=== PATIENT | female | born 1975 | race Caucasian/White ===

== ENCOUNTER 2017-04-21 00:40 | Emergency (ER) | payer OTHER ==
[2017-04-21] MEDS ORDERED: NORMAL SALINE 500 ML IV.SOLN IV SCH (01:30)
[2017-04-21] MEDS ORDERED: 0.9 % SODIUM CHLORIDE 1,000 ML IV ONE (01:44)
[2017-04-21] MEDS: fentaNYL CITRATE/PF 100 MCG/ 2ML AMP IVP ONE (02:30)
[2017-04-21] MEDS: ONDANSETRON HCL/PF 4 MG/ 2ML VIAL IVP ONE (02:30)
[2017-04-21] MEDS ORDERED: KETOROLAC TROMETHAMINE 30 MG/1ML VIAL ONE (02:35)
[2017-04-21] MEDS: KETOROLAC TROMETHAMINE 30 MG/1ML VIAL IM ONE (03:00)
[2017-04-21] MEDS: Lidocaine 2%Visc 15ml 20 MG/ML UDC PO ONE (03:20)
[2017-04-21] MEDS ORDERED: MAG HYDROX/AL HYDROX/SIMETH 30 ML UDC PO ONE (03:22)
[2017-04-21] MEDS ORDERED: Lidocaine 2%Visc 15ml 20 MG/ML UDC ONE (03:22)
[2017-04-21] MEDS: MAG HYDROX/AL HYDROX/SIMETH 30 ML, Lidocaine 2%Visc 15ml 20 MG, PHENobarb/HYOSCY/ATROPI... PO ONE ×3 (03:28)
[2017-04-21 03:36] VITALS: BP 131/72
--- NOTE | 2017-04-21 04:22 | ED Physician Documentation ---
Abdominal Pain - HISTORIAN Historian: patient - HPI Chief Complaint: Abdominal Pain Additonal Information: 42 yo F who present with acute abdominal pain that started shortly before presentation. She reports nausea with non bloody emesis associated with non bloody diarrhea. Pt report history of kidney stone. No fever or chills reported. No dysuria or hematuria reported. Onset: hours Context: other (none) Quality: pain, burning Associated Symptoms: nausea Relieved by: nothing - ROS CONST: no problems CVS/RESP: none EYES/ENT: none MS/SKIN/LYMPH: none NEURO/PSYCH: none - SOCIAL HX Smoking History: non-smoker - FAMILY HX Family History: no significant history - PAST HX Past History: GERD Home Medications: Ambulatory Orders Medication Instructions Recorded Dextroamphetamine/Amphetamine 1 tab PO BID 04/21/17 [Adderall 10 mg Tablet] LORazepam [Ativan] 0.5 mg PO QDAY 04/21/17 Venlafaxine HCl [Effexor Xr] 150 mg PO QDAY 04/21/17 Allergies/Adverse Reactions: Allergies Allergy/AdvReac Type Severity Reaction Status Date / Time No Known Allergies Allergy Verified 04/21/17 01:37 - VITAL SIGNS Vital Signs: Vital Signs Temp Pulse Resp BP Pulse Ox 98.2 F 81 16 131/72 98 04/21/17 03:25 04/21/17 03:25 04/21/17 03:25 04/21/17 03:25 04/21/17 03:25 - REVIEWED ASSESSMENTS Nursing Assessment Reviewed: Yes Vitals Reviewed: Yes Progress - Progress Progress: diffuse abdominal pain with nausea and emesis with diarrhea--could be gastroenteritis-- will check routine cmb and cbc and UA to rule any correctable cause -- also with CT abd/pel -- starting ivf ns bolus-- CT abd/pel -- noted negative --symptoms is likely gastroenteritis -- - EKG/XRAY/CT CT: CT abd/pel --no acute intraabdominal process noted ED Results Lab/Radiology - Orders Orders: ED Orders Category Date Time Status Place IV Lock 1T Care 04/21/17 01:[address] ABDOMEN PELVIS S [CT ABD & PELVIS W/O CON] Stat Exams 04/21/17 Taken CBC/PLATELET/DIFF Routine Lab 04/21/17 01:37 Stop Req CMP Routine Lab 04/21/17 01:46 Stop Req ETHANOL MEDICAL USE ONLY Routine Lab 04/21/17 01:46 Stop Req 0.9 % Sodium Chloride [Normal Saline] Med 04/21/17 01:30 Discontinued 1,000 ml IV DIRECTED 0.9 % Sodium Chloride [Normal Saline] 1,000 ml Med 04/21/17 01:44 Discontinued IV .STK-MED Ketorolac Tromethamine [Toradol] Med 04/21/17 02:35 Discontinued 30 mg .ROUTE .STK-MED ONE Ketorolac Tromethamine [Toradol] Med 04/21/17 03:00 Discontinued 30 mg IM NOW ONE Lidocaine 2%Visc 15ml [Xylocaine] Med 04/21/17 03:15 Discontinued 15 mg PO NOW ONE Lidocaine 2%Visc 15ml [Xylocaine] Med 04/21/17 03:22 Discontinued 300 mg .ROUTE .STK-MED ONE Mag Hydrox/Al Hydrox/Simeth [Mylanta] Med 04/21/17 03:22 Discontinued 30 ml PO .STK-MED ONE Mag Hydrox/Al Hydrox/Simeth [Mylanta] 30 ml Med 04/21/17 03:22 Discontinued Lidocaine 2%Visc 15ml [Xylocaine] 20 mg PHENobarb/HYOSCY/ATROPINE/SCOP [] 10 ml PO NOW Ondansetron HCl/Pf [Zofran 4 mg/2 ml] Med 04/21/17 01:10 Discontinued 4 mg IVP NOW ONE fentaNYL CITRATE/PF [Duragesic] Med 04/21/17 01:09 Discontinued 50 mcg IVP NOW ONE Abdominal Pain Physical Exam - Physical Exam General Appearance: no acute distress EENT: eye inspection normal, ENT inspection normal, pharynx normal, no signs of dehydration, FREDRICK, no nystagmus, TM's nml NECK: normal inspection RESPIRATORY: no resp distress, chest non-tender, breath sounds normal CVS: reg rate & rhythm, heart sounds normal, equal pulses, no murmur, no gallop , PMI nml, no JVD, no friction rub, 24 ABDOMEN: soft, no organomegaly, normal bowel sounds, no abdominal bruit, no distension, tenderness (diffused) BACK: normal inspection, no CVA tenderness SKIN: normal color, warm/dry, NR, INT, PAL, DR EXTREMITIES: non-tender, normal range of motion, no evidence of injury, no edema , J, [employer] NEURO: oriented X3, CN's nml as tested, motor nml, sensation nml Vital Signs: Vital Signs Temp Pulse Resp BP Pulse Ox 98.2 F 81 16 131/72 98 04/21/17 03:25 04/21/17 03:25 04/21/17 03:25 04/21/17 03:25 04/21/17 03:25 Discharge Clincal Impression: Gastroenteritis Home Medications: Ambulatory Orders Dextroamphetamine/Amphetamine [Adderall 10 mg Tablet] 1 tab PO BID 04/21/17 LORazepam [Ativan] 0.5 mg PO QDAY 04/21/17 Venlafaxine HCl [Effexor Xr] 150 mg PO QDAY 04/21/17 Condition: Stable Disposition: 01 HOME, SELF-CARE Decision to Admit: NO Decision Time: 03:15
--- NOTE | 2017-04-21 06:00 | Diagnostic Imaging Report ---
CECILIA ORNELAS~ [facility] [address] [facility] [address] [place], [place]. [address] ~ ~ ~ ~ Report Submission Date: Apr 21, 2017 2:34:02 AM CDT Patient ~ Study Name: HECTOR GARCIA ~ Date: Apr 21, 2017 2:05:55 AM CDT ~ Modality Type: CT\SR Gender: F ~ Description: CT ABD & PELVIS W/O CO : 75 ~ Institution: [facility] Physician: CECILIA ORNELAS ~ ~ ~ ~ Examination: CT Abdomen/pelvis History: Abdominal discomfort Comparison exams: None available Technique: CT Abdomen/pelvis without contrast protocol.~ Findings: Liver, spleen, adrenal glands, kidneys, pancreas and gallbladder are without irregularity.~ Abdominal aorta with mild peripheral atherosclerotic disease. Bowel without contrast limiting evaluation. No evidence for acute mesenteric inflammation or free air. Osseous structures demonstrate degenerative changes. Lung bases without infiltrate. Impression: No evidence for abdominal mass or acute inflammatory process given technique. ~ Electronically signed on Apr 21, 2017 2:34:02 AM CDT by: Nate CHAN
== END 2017-04-21 03:25 | disposition home or self-care (01) ==
LOC: ED 00:40
DX: K52.9 Noninfective gastroenteritis and colitis, unspecified (principal)
CPT/HCPCS: 74176; A9270; J1885; J7030; 96361; 96372; 99283; S1016

== ENCOUNTER 2017-04-21 08:40 | Emergency (ER) | payer OTHER ==
[2017-04-21 08:58] VITALS: BP 129/86
[2017-04-21] MEDS ORDERED: 0.9 % SODIUM CHLORIDE 1,000 ML IV ONE (09:11)
[2017-04-21] MEDS: 0.9 % SODIUM CHLORIDE 1,000 ML IV SCH (09:15)
[2017-04-21] MEDS: ONDANSETRON HCL/PF 4 MG/ 2ML VIAL IVP ONE (09:16)
[2017-04-21 09:25] LABS: APPEARANCE,URINE Clear (CLEAR); COLOR,URINE Yellow (YELLOW); OCCULT BLOOD,URINE 3+ (NEGATIVE)
[2017-04-21 09:32] LABS: BASOPHILS % 0.7 (0.0-1.5); EOSINOPHILS % 1.1 % (0.0-6.8); MEAN CORPUSCULAR HEMOGLOBIN 33.3 pg (28.0-34.0); MEAN CORPUSCULAR VOLUME 97.6 fl (80.0-100.0); MONOCYTES % 4.8 % (0.0-11.0); NEUTROPHILS # 10.4 # k/uL (1.4-7.7)
[2017-04-21 09:35] LABS: AMORPHOUS SEDIMENT,UR MODERATE (NEGATIVE)
[2017-04-21 09:46] LABS: eGFR (African) > 60; eGFR (Non-African) > 60
[2017-04-21] MEDS ORDERED: ACETAMINOPHEN 500 MG TABLET ONE (10:11)
[2017-04-21] MEDS: ACETAMINOPHEN 500 MG TABLET PO ONE (10:14)
[2017-04-21] MEDS: 0.9 % SODIUM CHLORIDE 1,000 ML IV ONE (10:30)
--- NOTE | 2017-04-21 11:46 | ED Physician Documentation ---
Nausea/Vomiting/Diarrhea - HISTORIAN Historian: patient - HPI Stated Complaint: Nausea Chief Complaint: Nausea,Vomiting,Diarrhea Additional Information: N/E/D onset yesterday-seen here in ed last noct rec 1L saline no ua out put. she has not eaten for 48+hrs no fluids xc 1/2 coke yest am-vomited that up. 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 she has been dehydrated in past and 'FEEL THAT WAY AGAIN' Onset: days ago (1-2) Duration: constant Timing: still present (here last noct tx for same-did not get her meds this. back again thinks dehydrated. she relates no food for 48 hrs and no fluids since yest aam-1/2 coke and vomited that up) Context: bad food (possible-no other acquaintences are sick. she is here to enroll her liliya into college) Severity: mild, moderate Further Comments: yes (she complained of genl pain and requested narcotics-we gave her tylenol but thios did not satisfy. her lab revealed sig dehydration. 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 she did not appear sig sick but was unhappy w/ narcotic refusal.) - Associated Symptoms Vomiting: other (none while here) Diarrhea: other (none while here accd to nurse) Abdominal Pain: mild, epigastric - ROS CONST: other (as above) GI/: dark urine MS/SKIN/LYMPH: other (ache all over accd to pt) NEURO/PSYCH: none - PAST HX Past History: other (kidney stones) Surgeries/Procedures: hysterectomy Allergies/Adverse Reactions: Allergies Allergy/AdvReac Type Severity Reaction Status Date / Time No Known Allergies Allergy Verified 04/21/17 08:58 Home Medications: Ambulatory Orders Medication Instructions Recorded Dextroamphetamine/Amphetamine 1 tab PO BID 04/21/17 [Adderall 10 mg Tablet] LORazepam [Ativan] 0.5 mg PO QDAY 04/21/17 Venlafaxine HCl [Effexor Xr] 150 mg PO QDAY 04/21/17 - SOCIAL HX Smoking History: less than 1 pack/day Alcohol Use: rarely Drug Use: none - FAMILY HX Family History: none - VITAL SIGNS Vital Signs: Vital Signs Temp Pulse Resp BP Pulse Ox 98.4 F 82 18 129/86 98 04/21/17 08:40 04/21/17 08:40 04/21/17 08:40 04/21/17 08:40 04/21/17 08:40 - REVIEWED ASSESSMENTS Nursing Assessment Reviewed: Yes ED Results Lab/Radiology - Lab Results Lab Results: Lab Results 04/21/17 04/21/17 04/21/17 09:20 09:20 09:20 WBC 13.40 K/ul H K/ul (4.00-12.00) RBC 4.53 M/ul M/ul (3.90-5.20) Hgb 15.1 g/dL g/dL (12.0-16.0) Hct 44.2 % % (34.5-46.5) MCV 97.6 fl fl (80.0-100.0) MCH 33.3 pg pg (28.0-34.0) MCHC 34.1 g/dL g/dL (30.0-36.0) RDW 13.0 % % (11.3-14.3) Plt Count 246 K/mm3 K/mm3 (130-400) Neut % (Auto) 77.5 % % (39.0-79.0) Lymph % (Auto) 15.0 % L % (16.0-50.0) [place]helps % (Auto) 4.8 % % (0.0-11.0) Eos % (Auto) 1.1 % % (0.0-6.8) Baso % (Auto) 0.7 (0.0-1.5) Neut # (Auto) 10.4 # k/uL H # k/uL (1.4-7.7) Lymph # (Auto) 2.0 # k/uL # k/uL (0.6-4.0) [place] # (Auto) 0.6 # k/uL # k/uL (0.0-0.9) Eos # (Auto) 0.1 # k/uL # k/uL (0.0-0.6) Baso # (Auto) 0.1 # k/uL # k/uL (0.0-0.5) Reactive Lymphs % 1.0 % % (0.0-5.0) Reactive Lymphs # 0.1 # k/uL # k/uL (0.0-0.8) Sodium 137 mmol/L mmol/L (136-145) Potassium 4.2 mmol/L mmol/L (3.5-5.0) Chloride 99 mmol/L mmol/L (98-110) Carbon Dioxide 25 mmol/L mmol/L (20-32) BUN 14 mg/dL mg/dL (10-26) Creatinine 0.6 mg/dL mg/dL (0.4-1.5) Estimated Creat Clear 174 Est GFR ( Amer) > 60 (60 - ) Est GFR (Non-Af Amer) > 60 (60 - ) Glucose 134 mg/dL H mg/dL (70-99) Calcium 10.0 mg/dL mg/dL (8.5-10.5) Total Bilirubin 0.7 mg/dL mg/dL (0.2-1.2) AST 27 U/L U/L (0-41) ALT 26 U/L U/L (0-45) Alkaline Phosphatase 97 U/L U/L (46-116) Total Protein 7.8 g/dL g/dL (6.0-8.5) Albumin 4.9 g/dL g/dL (3.0-5.5) Amylase 32 U/L U/L (20-104) Urine Color Yellow (YELLOW) Urine Appearance Clear (CLEAR) Urine pH 6.0 (5.0 - 8.0) Ur Specific [place] >=1.030 H (1.010-1.030) Urine Protein 2+ mg/dL H mg/dL (NEGATIVE) Urine Ketones Trace mg/dL mg/dL (NEGATIVE) Urine Occult Blood 3+ H (NEGATIVE) Urine Nitrite Negative (NEGATIVE) Urine Bilirubin 1+ H (NEGATIVE) Urine Urobilinogen 1.0 Eu Eu (0.2-1.0) Ur Leukocyte Esterase Negative (NEGATIVE) Urine RBC 10-25 H (0-2 HPF) Urine WBC 0-2 (0-5 HPF) Ur Squamous Epith Cells Few (NEG-FEW) Amorphous Sediment Moderate H (NEGATIVE) Urine Bacteria Few H (NEGATIVE) Urine Glucose Negative mg/dL mg/dL (NEGATIVE) - Orders Orders: ED Orders Category Date Time Status AMYLASE Routine Lab 04/21/17 09:20 Completed CBC/PLATELET/DIFF Routine Lab 04/21/17 09:20 Completed CMP Routine Lab 04/21/17 09:20 Completed URINALYSIS Routine Lab 04/21/17 09:20 Completed 0.9 % Sodium Chloride [Normal Saline] 1,000 ml Med 04/21/17 09:11 Discontinued IV .STK-MED 0.9 % Sodium Chloride [Normal Saline] 1,000 ml Med 04/21/17 09:30 Discontinued IV 1T 0.9 % Sodium Chloride [Normal Saline] 1,000 ml Med 04/21/17 10:33 Discontinued IV Q1H Acetaminophen [Tylenol Extra Strength] Med 04/21/17 10:11 Discontinued 1,000 mg .ROUTE .STK-MED ONE Acetaminophen [Tylenol Extra Strength] Med 04/21/17 10:14 Discontinued 1,000 mg PO NOW ONE Ondansetron HCl/Pf [Zofran 4 mg/2 ml] Med 04/21/17 09:03 Discontinued 4 mg IVP NOW ONE Nausea Physical Exam - EXAM General Appearance: mild distress EENT: eye inspection normal Neck: normal inspection, thyroid normal, supple Respiratory: no resp distress, chest non-tender, breath sounds normal CVS: reg rate & rhythm, heart sounds normal Abdomen: tenderness (slight generalized no guarding) Skin: warm/dry, normal color. No: cyanosis, diaphoresis, jaundice Extremities: non-tender, normal range of motion, no evidence of injury Neuro/Psych: oriented X3, motor nml, sensation nml, mood/affect nml (except she was upset we did not give her narcotics hero w/o a oil transport driver) Discharge Clincal Impression: dehydration-malnutrition(past 2 days) Referrals: Primary Doctor,No [Primary Care Provider] - 2 Days Home Medications: Ambulatory Orders Dextroamphetamine/Amphetamine [Adderall 10 mg Tablet] 1 tab PO BID 04/21/17 LORazepam [Ativan] 0.5 mg PO QDAY 04/21/17 Venlafaxine HCl [Effexor Xr] 150 mg PO QDAY 04/21/17 Comments: left AMA Condition: Good Disposition: 07 AGAINST MEDICAL ADVICE Decision to Admit: NO Decision Time: 11:43
== END 2017-04-21 10:52 | disposition left against medical advice (07) ==
LOC: ED 08:40
DX: E86.0 Dehydration (principal); E46 Unspecified protein-calorie malnutrition
CPT/HCPCS: 80053; 81002; 82150; 85025; J2405; J7030; 96361; 96375; 99283; S1016